=== PATIENT | female | born 1975 | race Caucasian/White ===

== ENCOUNTER → 2017-04-18 | Outpatient (CLI) | payer BC ==
--- NOTE | 2017-04-18 13:05 | REP ---
MRI LEFT ANKLE: TECHNIQUE: Sagittal proton density, STIR, axial proton density fat sat, T1, coronal proton density, STIR. The Achilles, anterior tibial, posterior tibial, flexor hallucis longus, flexor digitorum longus and peroneal tendons are all intact. I do not see significant tenosynovitis. Anterior and posterior talofibular, calcaneofibular and deltoid ligaments appear intact with no tear. There is no evidence of plantar fasciitis. Plantar tendon is intact. Normal amount of joint fluid is present without evidence of an effusion. No ganglion cyst is seen. Mild scattered superficial soft tissue edema is nonspecific, seen more so medially. No osteochondral defect is seen at the tibiotalar joint. There is an apparent old healed fracture of the distal fibula. IMPRESSION: Old healed fracture distal fibula. No acute abnormalities. No tendon or ligament tear. Signed by Negro Norris MD 04/18/2017 03:49 P
== END ==
LOC: M RAD 10:05
PROVIDERS: ATTEND Podiatrist
DX: Z87.81 Personal history of (healed) traumatic fracture (principal); S93.0 Subluxation and dislocation of ankle joint; X58.XXXS Exposure to other specified factors, sequela; Y99.8 Other external cause status

== ENCOUNTER → 2020-11-01 | Outpatient (CLI) | payer BC ==
--- NOTE | 2020-11-01 14:08 | REPVR ---
PROCEDURE INFORMATION: Exam: CT Maxillofacial Without Contrast Exam date and time: 11/01/2020 1:43 PM Age: 45 years old Clinical indication: Other: Facial pain, dns TECHNIQUE: Imaging protocol: Computed tomography images of the face without contrast. Radiation optimization: All CT scans at this facility use at least one of these dose optimization techniques: automated exposure control; mA and/or kV adjustment per patient size (includes targeted exams where dose is matched to clinical indication); or iterative reconstruction. COMPARISON: No relevant prior studies available. FINDINGS: Orbital cavity: Orbits are normal. Globes are unremarkable. Bones/joints: No acute fracture. Degenerative changes of the left temporomandibular joint. There are subcondylar cystic changes in the mandibular condylar head. Paranasal sinuses: No air-fluid levels. No significant mucosal thickening. The sinus drainage pathways are patent. Pneumatization of the sphenoid sinuses extends into the anterior clinoids. The right maxillary sinus demonstrates a septation. Soft tissues: Unremarkable. Lymph nodes: Submandibular and upper internal jugular chain lymph nodes are mildly increased in number, not individually pathologically enlarged. Nasal cavity: No nasal cavity masses. The right middle turbinate is partially paradoxical. Snyder left deviation and spurring of the nasal septum which demonstrates mass effect upon the left middle and inferior turbinates. Dental: Left maxillary 1st molar periapical lucency causes dehiscence of the maxillary sinus floor, likely chronic. Oropharynx: The palatine and lingual tonsils are mildly, diffusely enlarged, likely a chronic finding. IMPRESSION: No evidence of acute or chronic obstructive sinusitis. Snyder left deviation of the nasal septum which demonstrates mass effect upon the left middle and inferior turbinates. Electronically signed by: Carey Fontana On 11/01/2020 14:08:46 PM
== END ==
LOC: M RAD 13:39
PROVIDERS: ATTEND Specialist
DX: G50.1 Atypical facial pain (principal); J34.2 Deviated nasal septum